=== PATIENT | female | born 1990 | race Caucasian/White ===

== ENCOUNTER 2021-03-07 00:33 | Emergency (ER) | payer BC ==
[2021-03-07] MEDS ORDERED: Glycopyrrolate 0.4 MG/ 2 ML VIAL ONE (00:48)
[2021-03-07] MEDS ORDERED: Fentanyl 100 MCG/2 ML VIAL ONE (00:48)
[2021-03-07] MEDS ORDERED: Ondansetron PF 4 MG/2 ML Vial ONE (00:48)
[2021-03-07 01:13] LABS: #Basophils 0.2 thou/uL (0.0-0.2); #Eosinphils 0.3 thou/uL (0.0-0.7); #Lymphocytes 3.2 thou/uL (1.20-3.40); #Monocytes 0.7 thou/uL (0.11-0.59); #Neutrophils 7.1 thou/uL (1.40-6.50); %Basophils 1.5 % (0.0-1.0); %Eosinophils 2.6 % (0.0-10.0); %Lymphocytes 28.2 % (21.0-51.0); %Monocytes 6.2 % (0.0-10.0); %Neutrophils 61.5 % (42.0-75.0); Hemoglobin 15.6 g/dL (12.0-16.0); Mean Corpuscular HGB CONC 34.8 g/dL (32.0-36.0); Mean Platelet Volume 8.9 fL (7.4-10.4); Platelet Count 244 thou/uL (130-400); RBC Distribution Width 12.7 % (11.5-14.5); Red Blood Cell (RBC) Count 5.04 mill/uL (4.20-5.40); White Blood Cell (WBC) Count 11.5 thou/uL (4.8-10.8)
[2021-03-07 01:22] LABS: Bilirubin Negative (Negative); Blood, Urine Negative (Negative); Clarity Clear (Clear); Glucose, Urine (Dipstick) Negative (Negative); Ketone, Urine Negative (Negative); Leukocyte Negative (Negative); Nitrite Negative (Negative); Protein, Urine (Dipstick) Negative (Neg-Trace); Urobilinogen 0.2 mg/dL (Less than 2)
[2021-03-07 01:26] LABS: ALT (SGPT) 22 U/L (8-55); AST (SGOT) 27 U/L (5-34); Albumin 4.3 g/dL (3.5-5.0); Alkaline Phosphatase 78 U/L (40-110); Anion Gap 17 mmol/L (10-20); BUN (Urea Nitrogen) 15 mg/dL (7.0-18.7); Bilirubin, Total 0.3 mg/dL (0.2-1.2); Calc. Creatinine Clearance 0 mL/min (70-130); Calcium 9.8 mg/dL (7.8-10.44); Carbon Dioxide 22 mmol/L (22-29); Chloride 105 mmol/L (98-107); Globulin 3.3 g/dL (2.4-3.5); Glucose 126 mg/dL (70-105); Lipase 37 U/L (8-78); Potassium 4.3 mmol/L (3.5-5.1); Protein, Total 7.6 g/dL (6.0-8.3); Sodium 140 mmol/L (136-145)
[2021-03-07] MEDS ORDERED: Ketorolac Tromethamine 30 MG/ML VIAL ONE (01:41)
== END 2021-03-07 01:47 | disposition home or self-care (01) ==
LOC: BURERS 00:33
DX: K80.50 Calculus of bile duct without cholangitis or cholecystitis without obstruction (principal); K21.9 Gastro-esophageal reflux disease without esophagitis
CPT/HCPCS: 80053; 81003; 83690; 85025; 96374; 96375; J1885; J2405; J3010

== ENCOUNTER 2024-03-14 13:47 | Emergency (ER) | payer BC ==
[2024-03-14] MEDS ORDERED: Ondansetron ODT 4 MG TAB ONE (14:08)
== END 2024-03-14 15:12 | disposition home or self-care (01) ==
LOC: BURERS 13:47
DX: R11.2 Nausea with vomiting, unspecified (principal)
CPT/HCPCS: 99283; Q0162